=== PATIENT | male | born 1940 | race Caucasian/White ===

== ENCOUNTER 2017-03-15 10:57 | Day surgery (SDC) | payer MEDICARE, BC ==
[2017-03-15] MEDS ORDERED: Lactated Ringers 1,000 ML IV SCH (11:15)
[2017-03-15] MEDS ORDERED: Sodium Chloride 0.9% 10 ML Syringe FLUSH PRN (11:15)
[2017-03-15] MEDS ORDERED: fentaNYL 100 MCG/2 ML SDV ONE ×2 (12:02→12:15)
[2017-03-15] MEDS ORDERED: Midazolam 1 MG/ML 2 ML SDV ONE ×2 (12:02→12:15)
[2017-03-15] MEDS ORDERED: Propofol 200 MG/20 ML SDV ONE ×2 (12:02→12:15)
--- NOTE | 2017-03-15 12:05 | PCM.HPR ---
H & P Addendum review - H & P Addendum Review Date of Original H & P: 03/07/17 Date Reviewed: 03/15/17 Time Reviewed: 12:01 Patient was Examined: No Changes
[2017-03-15] MEDS ORDERED: Lidocaine 2% 5 ML SDV ONE (12:15)
--- NOTE | 2017-03-15 12:54 | PCM.OPNOTE ---
- General Post-Op/Procedure Note Date of Surgery/Procedure: 03/15/17 Operative Procedure(s): EGD with Bx. Colonoscopy Findings: Gastritis/erosions/HH Sig tics Pre Op Diagnosis: FE Def Anemia Post-Op Diagnosis: Same Anesthesia Technique: MAC Primary Surgeon: Devin Kramer Anesthesia Provider: Alison Brown Complications: None Condition: Good Free Text/Narrative:: Intake & Output 03/14/17 03/15/17 03/15/17 22:59 06:59 14:59 Intake Total 500 Balance 500
[2017-03-15 15:16] VITALS: BP 153/72
--- NOTE | 2017-03-16 08:04 | OR ---
Date of Procedure: 03/15/2017 PREOPERATIVE DIAGNOSIS: Iron-deficiency anemia. POSTOPERATIVE DIAGNOSES: 1. Gastritis with erosions. 2. Hiatal hernia. 3. Sigmoid diverticulosis. PROCEDURES: 1. Esophagogastroduodenoscopy with biopsy. 2. Colonoscopy. ANESTHESIA: IV sedation. PROCEDURE IN DETAIL: Patient was brought to the procedure where he was placed on the left side after IV sedation was given and the oral bite block was placed. Upper endoscope was advanced into the esophagus under direct vision without difficulty. Vocal cords were viewed and were normal. The scope was advanced to the third portion of the duodenum. Duodenum and pylorus appeared normal. Antrum had some mild gastritis. Biopsies were taken. The main body of the stomach looked normal; however, the upper body near the hiatal hernia has moderate gastritis with erosions present. This appears to be his source of anemia. Tissue was friable and biopsies were performed, which had moderate bleeding. The squamocolumnar junction appears normal. I did not see any evidence of reflux esophagitis. Air was removed from the stomach and the scope withdrawn through the remaining esophagus, which appears normal. Next, colonoscopy was performed after digital rectal exam was done, which was normal. Colonoscope was inserted and advanced to the level of the cecum without difficulty. Cecal position was confirmed by identifying the appendiceal lumen and ileocecal valve. Prep was good and surfaces were well visualized. Upon withdrawing the scope, the ascending, transverse, and descending colon appeared normal. Sigmoid colon had a few diverticula present. Rectum was normal and retroflexion was normal. Air was removed and the scope withdrawn. Patient tolerated the procedure well and returned to recovery in stable condition. I will have the patient to start omeprazole 20 mg daily for one month. I will have him stop his aspirin for one week. I do not feel any further colon screenings are necessary because of his age. EVA MORGAN MD /[id number]
== END 2017-03-15 14:10 | disposition home or self-care (01) ==
LOC: LL.SDS 10:57
PROVIDERS: ATTEND Surgery
DX: K29.50 Unspecified chronic gastritis without bleeding (principal); K57.30 Diverticulosis of large intestine without perforation or abscess without bleeding; K44.9 Diaphragmatic hernia without obstruction or gangrene; I10 Essential (primary) hypertension; E11.9 Type 2 diabetes mellitus without complications; E78.5 Hyperlipidemia, unspecified; Z79.82 Long term (current) use of aspirin; Z79.899 Other long term (current) drug therapy; Z79.84 Long term (current) use of oral hypoglycemic drugs; Z91.040 Latex allergy status; Z77.22 Contact with and (suspected) exposure to environmental tobacco smoke (acute) (chronic)
CPT/HCPCS: 43239; 45378; J2250; J2704; J3010; J7120; 00810-QZ; 88305

== ENCOUNTER 2023-12-06 07:10 | Day surgery (SDC) | payer BC, MEDICARE, OTHER ==
[2023-12-06] MEDS ORDERED: Midazolam 1 MG/ML 2 ML SDV ONE (07:28)
[2023-12-06] MEDS ORDERED: Propofol 200 MG/20 ML SDV ONE (07:28)
[2023-12-06] MEDS: Lactated Ringers 1,000 ML IV SCH (07:57)
[2023-12-06 08:44] VITALS: BP 161/70; PULSE 48
[2026-12-02] MEDS ORDERED: Sodium Chloride 0.9% 10 ML Syringe FLUSH PRN (07:00)
== END 2023-12-06 09:10 | disposition home or self-care (01) ==
LOC: LL.SDS 07:10
PROVIDERS: ATTEND Surgery
DX: K31.89 Other diseases of stomach and duodenum (principal); K21.00 Gastro-esophageal reflux disease with esophagitis, without bleeding; K44.9 Diaphragmatic hernia without obstruction or gangrene; D50.9 Iron deficiency anemia, unspecified; I25.10 Atherosclerotic heart disease of native coronary artery without angina pectoris; I10 Essential (primary) hypertension; E11.9 Type 2 diabetes mellitus without complications; E78.5 Hyperlipidemia, unspecified; E66.9 Obesity, unspecified; Z79.84 Long term (current) use of oral hypoglycemic drugs; Z79.82 Long term (current) use of aspirin; Z79.899 Other long term (current) drug therapy; Z88.8 Allergy status to other drugs, medicaments and biological substances; Z87.891 Personal history of nicotine dependence; Z68.31 Body mass index [BMI] 31.0-31.9, adult; Z95.5 Presence of coronary angioplasty implant and graft
CPT/HCPCS: 00731; 88305; 99100; J2250; J2704; J7120

== ENCOUNTER 2023-12-27 12:04 | Day surgery (SDC) | payer MEDICARE ==
[~2023-12-27 12:04] MED LIST: Propofol 200 MG/20 ML SDV ONE
[2023-12-27] MEDS ORDERED: Sodium Chloride 0.9% 10 ML Syringe FLUSH PRN (12:15)
[2023-12-27] MEDS: Lactated Ringers 1,000 ML IV SCH (13:07)
[2023-12-27 13:51] VITALS: PULSE 56
[2023-12-27 14:03] VITALS: BP 155/68
== END 2023-12-27 14:26 | disposition home or self-care (01) ==
LOC: LL.SDS 12:04
PROVIDERS: ATTEND Surgery
DX: K57.30 Diverticulosis of large intestine without perforation or abscess without bleeding (principal); D50.9 Iron deficiency anemia, unspecified; I25.10 Atherosclerotic heart disease of native coronary artery without angina pectoris; I10 Essential (primary) hypertension; E11.9 Type 2 diabetes mellitus without complications; E78.5 Hyperlipidemia, unspecified; E66.9 Obesity, unspecified; Z68.31 Body mass index [BMI] 31.0-31.9, adult; Z87.891 Personal history of nicotine dependence; Z79.84 Long term (current) use of oral hypoglycemic drugs; Z79.899 Other long term (current) drug therapy
CPT/HCPCS: J2704; J7120